=== PATIENT | male | born 2000 | race Caucasian/White ===

== ENCOUNTER 2022-04-17 02:30 | Emergency (ER) | payer OTHER ==
[~2022-04-17] VITALS: Ht 172.7 cm; Wt 87.8 kg
[2022-04-17 02:40] VITALS: BP 126/66
--- NOTE | 2022-04-17 02:47 | PHYS DOC ---
Adult General Chief Complaint Chief Complaint: TOE PROBLEM HPI HPI Patient is a 21-year-old male who presents with left big toe pain after dropping a beer bottle on it just before coming to the emergency department. States that the pain is about 6 out of 10, dull aching nature. Denies any other injuries. Up-to-date on tetanus. Review of Systems Review of Systems Review of systems otherwise unremarkable except noted in HPI Physical Exam Physical Exam Constitutional: Well developed, well nourished, no acute distress, non-toxic appearance. [] Skin: Warm, dry, no erythema, no rash. [] Extremities: Neurovascular exam intact, some bruising and small contusion under the left great toenail taking up about 20%, Neurologic: Alert and oriented X 3, normal motor function, normal sensory f unction, able to sit, stand and walk without issue no focal deficits noted. [] Psychologic: Affect normal, judgement normal, mood normal. [] EKG EKG [] Radiology/Procedures Radiology/Procedures [] Heart Score C/O Chest Pain: No Risk Factors: Risk Factors: DM, Current or recent (<one month) smoker, HTN, HLP, family history of CAD, obesity. Risk Scores: Risk Factors: DM, Current or recent (<one month) smoker, HTN, HLP, family history of CAD, obesity. Course & Med Decision Making Course & Med Decision Making Patient is a 21-year-old male who presents with left big toe pain Vital signs nonconcerning. Physical exam noted above. Imaging with no acute osseous abnormalities. Given pain medicine and ice. Discussed symptom management at home. Advised to follow-up with primary care physician. Gave return precautions to the ED. Family grateful, verbalized understanding and agreed with plan of discharge [] Dragon Disclaimer Dragon Disclaimer This electronic medical record was generated, in whole or in part, using a voice recognition dictation system. Departure Departure: Impression: Primary Impression: Toe injury Disposition: HOME / SELF CARE / HOMELESS Condition: STABLE Referrals: SUSAN VERDUZCO MD (PCP) Patient Instructions: Toe Injuries and Amputations Additional Instructions: Thank you for coming into the emergency department tonight and allowing us to take care of you. Please read the attached information carefully to go over things we discussed. You can use Tylenol, ibuprofen and ice as needed at home. Please protect your toe, wear appropriate fitting socks and shoes as well to prevent any further damage. Please follow-up with your primary care physician next week. Please come back to the emergency department with new or concerning symptoms as we discussed such as but not limited to excessive pain, changes in the color of your toe itself with desensitization or the bruise and/or blood covering more than about 50% of your nail. As we discussed there is a possibility she may lose her nail but that is unknown at this time. DARIAN LIRA MD April 17, 2022 02:47
--- NOTE | 2022-04-17 03:05 | RAD ---
Three-view left foot HISTORY: Pain status post great toe injury AP lateral and oblique views. Visualized osseous structures appear normal. There has been prior repair of the distal fibula. IMPRESSION: No acute findings. Electronically signed by: Fito Silva III, MD (04/17/2022 3:03 AM) [facility]
[2022-04-17] MEDS: oxyCODONE/APAP 5/325 1 TAB TABLET PO ONE (03:09)
== END 2022-04-17 03:30 | disposition home or self-care (01) ==
LOC: ER 02:30
DX: S90.112A Contusion of left great toe without damage to nail, initial encounter (principal); W20.8XXA Other cause of strike by thrown, projected or falling object, initial encounter; Y93.89 Activity, other specified; Y92.89 Other specified places as the place of occurrence of the external cause; Y99.8 Other external cause status
CPT/HCPCS: 29515; 73630; 99284